=== PATIENT | female | born 1985 | race Caucasian/White ===

== ENCOUNTER → 2016-10-17 | Outpatient (REF) | payer OTHER ==
[~2016-10-17] MED LIST: ACET50TA PO; IBUP80TA PO; VITAPRTA PO
== END ==
LOC: M LAB REF 16:34
PROVIDERS: ATTEND Physician Assistant
DX: J02.9 Acute pharyngitis, unspecified (principal)

== ENCOUNTER → 2017-09-04 | Outpatient (REF) | payer OTHER ==
[2017-09-04 18:57] LABS: TOTAL 25(OH) VITAMIN D 15.2 NG/ML (30.0-100.0); TOTAL T3 92.9 NG/DL (60.0-181.0)
[2017-09-04 19:00] LABS: THYROID STIMULATING HORMONE 0.872 uIU/ML (0.358-3.740)
[2017-09-04 19:00] LABS: THYROXINE (T4) 11.3 UG/DL (4.5-12.0)
[2017-09-04 19:23] LABS: BASO # 0.1 10^3/uL (0.0-0.2); BASO % 0.4 % (0.0-1.0); EOS # 0.2 10^3/uL (0.0-0.50); EOS % 1.5 % (0.0-3.0); HEMATOCRIT 40.5 % (36.0-47.0); HEMOGLOBIN 13.5 g/dl (12.0-16.0); IMMATURE GRANULOCYTE % 0.9 % (0-3.0); LYMPH # 3.3 10^3/uL (1.5-4.5); LYMPH % 23.7 % (24.0-44.0); MEAN CORPUSCULAR HEMOGLOBIN 31.6 pg (27.0-33.0); MEAN CORPUSCULAR HGB CONC 33.3 g/dl (32.0-36.5); MEAN CORPUSCULAR VOLUME 94.8 fl (80.0-96.0); MONO # 0.9 10^3/uL (0.0-0.8); MONO % 6.2 % (0.0-5.0); NEUTROPHILS # 9.4 10^3/uL (1.8-7.7); NEUTROPHILS % 67.3 % (36.0-66.0); PLATELET COUNT, AUTOMATED 258 10^3/uL (150-450); RED BLOOD COUNT 4.27 10^6/uL (4.00-5.40); RED CELL DISTRIBUTION WIDTH 13.2 % (11.5-14.5)
[2017-09-12 10:26] LABS: SUMMARY SEE SEPARATE REPORT
== END ==
LOC: M LAB REF 16:38
DX: F43.12 Post-traumatic stress disorder, chronic (principal)
CPT/HCPCS: 84443

== ENCOUNTER → 2018-03-22 | Outpatient (CLI) | payer OTHER ==
[2018-03-22 13:45] LABS: BASO # 0.1 10^3/uL (0.0-0.2); BASO % 0.4 % (0.0-1.0); EOS # 0.2 10^3/uL (0.0-0.50); EOS % 1.7 % (0.0-3.0); HEMATOCRIT 40.7 % (36.0-47.0); HEMOGLOBIN 13.8 g/dl (12.0-15.5); IMMATURE GRANULOCYTE % 0.4 % (0-3.0); LYMPH # 2.8 10^3/uL (1.5-4.5); LYMPH % 22.1 % (24.0-44.0); MEAN CORPUSCULAR HEMOGLOBIN 32.2 pg (27.0-33.0); MEAN CORPUSCULAR HGB CONC 33.9 g/dl (32.0-36.5); MEAN CORPUSCULAR VOLUME 94.9 fl (80.0-96.0); MONO # 0.9 10^3/uL (0.0-0.8); MONO % 7.4 % (0.0-5.0); NEUTROPHILS # 8.5 10^3/uL (1.8-7.7); PLATELET COUNT, AUTOMATED 251 10^3/uL (150-450); RED BLOOD COUNT 4.29 10^6/uL (4.00-5.40); RED CELL DISTRIBUTION WIDTH 13.8 % (11.5-14.5); WHITE BLOOD COUNT 12.5 10^3/uL (4.0-10.0)
[2018-03-22 13:59] LABS: D-DIMER QUANT 257.7 ng/ml (<500)
[2018-03-22 14:12] LABS: ALBUMIN 4.3 GM/DL (3.2-5.2); ALKALINE PHOSPHATASE 59 U/L (45-117); ALT/SGPT 22 U/L (12-78); ANION GAP 8 MEQ/L (8-16); AST/SGOT 12 U/L (7-37); BILIRUBIN,TOTAL 0.9 MG/DL (0.2-1.0); BLOOD UREA NITROGEN 15 MG/DL (7-18); CALCIUM LEVEL 9.2 MG/DL (8.5-10.1); CARBON DIOXIDE LEVEL 27 MEQ/L (21-32); CHLORIDE LEVEL 107 MEQ/L (98-107); CK-MB VALUE MASS < 1.0 NG/ML (<3.6); CPK CREATINE PHOSPHOKINASE 49 U/L (26-192); FREE T4 0.85 NG/DL (0.76-1.46); GLOMERULAR FILTRATION RATE > 60.0 (>60); GLUCOSE, FASTING 76 MG/DL (70-100); MB/CK RELATIVE INDEX 2.04 (< OR =4); POTASSIUM SERUM 4.2 MEQ/L (3.5-5.1); SODIUM LEVEL 142 MEQ/L (136-145); THYROID STIMULATING HORMONE 0.606 uIU/ML (0.358-3.740); TOTAL PROTEIN 7.6 GM/DL (6.4-8.2); TROPONIN I < 0.02 NG/ML (< 0.10)
== END ==
LOC: M WUC 11:33
DX: R07.1 Chest pain on breathing (principal)

== ENCOUNTER → 2021-08-09 | Outpatient (CLI) | payer OTHER ==
[~2021-08-09] MED LIST changes: -ACET50TA PO; +MAPA500T2 PO
[2021-08-09 17:30] LABS: BASO # 0.1 10^3/uL (0.0-0.2); BASO % 0.3 % (0.0-1.0); EOS # 0.2 10^3/uL (0.0-0.5); EOS % 1.1 % (0.0-3.0); HEMATOCRIT 38.3 % (36.0-47.0); HEMOGLOBIN 12.8 g/dl (12.0-15.5); LYMPH # 2.8 10^3/uL (1.5-5.0); LYMPH % 17.9 % (24.0-44.0); MEAN CORPUSCULAR HEMOGLOBIN 33.1 pg (27.0-33.0); MEAN CORPUSCULAR HGB CONC 33.4 g/dl (32.0-36.5); MONO # 1.2 10^3/uL (0.0-0.8); MONO % 7.8 % (2.0-8.0); NEUTROPHILS # 11.5 10^3/uL (1.5-8.5); NEUTROPHILS % 72.3 % (36.0-66.0); PLATELET COUNT, AUTOMATED 321 10^3/uL (150-450); RED BLOOD COUNT 3.87 10^6/uL (4.00-5.40); WHITE BLOOD COUNT 15.9 10^3/uL (4.0-10.0)
[2021-08-09 18:42] LABS: HEPATITIS C VIRUS ABY INDEX 0.1 INDEX (<0.8); HIV 1&2 SCREEN CENTAUR NEGATIVE (NEGATIVE)
[2021-08-09 19:27] LABS: GC DNA AMPLIFICATION NEGATIVE (NEGATIVE)
== END ==
LOC: M PLALAB 15:13
PROVIDERS: ATTEND Advanced Practice Midwife
DX: Z34.91 Encounter for supervision of normal pregnancy, unspecified, first trimester (principal); Z3A.00 Weeks of gestation of pregnancy not specified

== ENCOUNTER 2021-08-25 18:14 | Emergency (ER) | payer OTHER ==
[~2021-08-25] VITALS: Ht 154.9 cm; Wt 65.9 kg
[2021-08-25 19:01] LABS: BASO % 0.2 % (0.0-1.0); EOS # 0.1 10^3/uL (0.0-0.5); EOS % 0.6 % (0.0-3.0); HEMATOCRIT 34.8 % (36.0-47.0); HEMOGLOBIN 12.1 g/dl (12.0-15.5); LYMPH # 3.3 10^3/uL (1.5-5.0); LYMPH % 19.3 % (24.0-44.0); MEAN CORPUSCULAR HEMOGLOBIN 32.6 pg (27.0-33.0); MEAN CORPUSCULAR HGB CONC 34.8 g/dl (32.0-36.5); MEAN CORPUSCULAR VOLUME 93.8 fl (80.0-96.0); MONO # 1.1 10^3/uL (0.0-0.8); MONO % 6.7 % (2.0-8.0); NEUTROPHILS # 12.2 10^3/uL (1.5-8.5); NEUTROPHILS % 72.7 % (36.0-66.0); PLATELET COUNT, AUTOMATED 341 10^3/uL (150-450); RED BLOOD COUNT 3.71 10^6/uL (4.00-5.40); WHITE BLOOD COUNT 16.8 10^3/uL (4.0-10.0)
[2021-08-25 19:40] LABS: HCG, SERUM QUANTITATIVE 62712 MIU/ML
[2021-08-25 20:17] LABS: ALBUMIN 4.1 GM/DL (3.2-5.2); ALT/SGPT 20 U/L (12-78); BILIRUBIN,TOTAL 0.5 MG/DL (0.2-1.0); BLOOD UREA NITROGEN 9 MG/DL (7-18); CALCIUM LEVEL 9.6 MG/DL (8.5-10.1); CARBON DIOXIDE LEVEL 23 MEQ/L (21-32); CHLORIDE LEVEL 106 MEQ/L (98-107); CREATININE FOR GFR 0.46 MG/DL (0.55-1.30); GLOMERULAR FILTRATION RATE > 60.0 (>60); GLUCOSE, FASTING 81 MG/DL (70-100); SODIUM LEVEL 136 MEQ/L (136-145); TOTAL PROTEIN 7.5 GM/DL (6.4-8.2)
[2021-08-25 22:21] VITALS: BP 121/76
[2021-08-25] MEDS ORDERED: CEPH500C PO (22:29)
[2021-08-25 23:02] LABS: GC DNA AMPLIFICATION NEGATIVE (NEGATIVE)
== END 2021-08-25 22:41 | disposition home or self-care (01) ==
LOC: M ED 18:14
DX: O20.8 Other hemorrhage in early pregnancy (principal); N93.9 Abnormal uterine and vaginal bleeding, unspecified; N39.0 Urinary tract infection, site not specified; Z88.0 Allergy status to penicillin; Z3A.10 10 weeks gestation of pregnancy

== ENCOUNTER → 2021-09-12 | Outpatient (REF) | payer OTHER ==
[~2021-09-12] MED LIST changes: +CEPH500C PO
== END ==
LOC: M PLALAB 14:15
PROVIDERS: ATTEND Advanced Practice Midwife
DX: Z53.9 Procedure and treatment not carried out, unspecified reason (principal)

== ENCOUNTER → 2021-09-12 | Outpatient (REF) | payer OTHER | LOC: M SFHCWAGY 16:47 | PROVIDERS: ATTEND Advanced Practice Midwife | DX: Z34.92 Encounter for supervision of normal pregnancy, unspecified, second trimester (principal) ==

== ENCOUNTER → 2021-09-13 | Outpatient (CLI) | payer OTHER | LOC: M PLALAB 12:42 | PROVIDERS: ATTEND Advanced Practice Midwife | DX: Z34.92 Encounter for supervision of normal pregnancy, unspecified, second trimester (principal) ==

== ENCOUNTER 2021-10-18 05:07 | Emergency (ER) | payer OTHER ==
[~2021-10-18] VITALS: Ht 154.9 cm; Wt 63.6 kg
[2021-10-18 05:07] VITALS: BP 125/58
== END 2021-10-18 08:03 | disposition home or self-care (01) ==
LOC: M ED 05:07
DX: M67.431 Ganglion, right wrist (principal); M25.531 Pain in right wrist; Y92.009 Unspecified place in unspecified non-institutional (private) residence as the place of occurrence of the external cause; Y93.9 Activity, unspecified; Y99.9 Unspecified external cause status; Z3A.18 18 weeks gestation of pregnancy; Z88.0 Allergy status to penicillin

== ENCOUNTER → 2021-10-31 | Outpatient (CLI) | payer OTHER | LOC: M WHC 12:03 | PROVIDERS: ATTEND Advanced Practice Midwife | DX: Z34.82 Encounter for supervision of other normal pregnancy, second trimester (principal); Z3A.17 17 weeks gestation of pregnancy ==

== ENCOUNTER → 2021-12-08 | Outpatient (CLI) | payer OTHER | LOC: M WHC 09:58 | PROVIDERS: ATTEND Obstetrics & Gynecology | DX: Z34.92 Encounter for supervision of normal pregnancy, unspecified, second trimester (principal); Z3A.25 25 weeks gestation of pregnancy ==

== ENCOUNTER → 2021-12-21 | Outpatient (CLI) | payer OTHER | LOC: M WHC 11:56 | PROVIDERS: ATTEND Specialist | DX: Z34.02 Encounter for supervision of normal first pregnancy, second trimester (principal) ==

== ENCOUNTER → 2021-12-27 | Outpatient (REF) | payer OTHER ==
[2021-12-27 16:19] LABS: HEMATOCRIT 29.6 % (36.0-47.0); HEMOGLOBIN 10.1 g/dl (12.0-15.5); MEAN CORPUSCULAR HEMOGLOBIN 32.6 pg (27.0-33.0); MEAN CORPUSCULAR HGB CONC 34.1 g/dl (32.0-36.5); MEAN CORPUSCULAR VOLUME 95.5 fl (80.0-96.0); PLATELET COUNT, AUTOMATED 299 10^3/uL (150-450); WHITE BLOOD COUNT 19.1 10^3/uL (4.0-10.0)
== END ==
LOC: M SFHCADAM 15:51
PROVIDERS: ATTEND Obstetrics & Gynecology
DX: Z34.92 Encounter for supervision of normal pregnancy, unspecified, second trimester (principal)

== ENCOUNTER → 2022-02-16 | Outpatient (CLI) | payer OTHER | LOC: M WHC 10:40 | PROVIDERS: ATTEND Obstetrics & Gynecology | DX: O99.810 Abnormal glucose complicating pregnancy (principal); Z3A.35 35 weeks gestation of pregnancy ==

== ENCOUNTER → 2022-02-21 | Outpatient (REF) | payer OTHER | LOC: M SFHCWAGY 17:11 | PROVIDERS: ATTEND Specialist | DX: Z36.85 Encounter for antenatal screening for Streptococcus B (principal) ==

== ENCOUNTER 2022-03-20 10:20 | Inpatient (IN) | payer OTHER ==
[2022-03-20] VITALS (56 sets, daily range): BP systolic 81–134; BP diastolic 47–82
[~2022-03-20] VITALS: Ht 154.9 cm; Wt 65.9 kg
[2022-03-20] MEDS ORDERED: TUMS500C PO (10:39)
[2022-03-20] MEDS ORDERED: ECOT81TA5 PO (10:39)
[2022-03-20] MEDS ORDERED: HOME MED LIST COMPLETE! XX SCH (11:10)
[2022-03-20 11:27] LABS: HEMATOCRIT 37.2 % (36.0-47.0); HEMOGLOBIN 12.7 g/dl (12.0-15.5); MEAN CORPUSCULAR HEMOGLOBIN 32.4 pg (27.0-33.0); MEAN CORPUSCULAR HGB CONC 34.1 g/dl (32.0-36.5); MEAN CORPUSCULAR VOLUME 94.9 fl (80.0-96.0); PLATELET COUNT, AUTOMATED 342 10^3/uL (150-450); RED BLOOD COUNT 3.92 10^6/uL (4.00-5.40); WHITE BLOOD COUNT 20.1 10^3/uL (4.0-10.0)
[2022-03-20] MEDS ORDERED: LIDOCAINE 1% MDV 20ML VIAL INFIL PRN (14:20)
[2022-03-20] MEDS ORDERED: LR 1,000 ML IV SCH ×3 (14:20→22:40)
[2022-03-20] MEDS ORDERED: CARBOPROST TROMETHAMINE 250 MCG/ML AMP IM PRN (14:20)
[2022-03-20] MEDS ORDERED: METHYLERGONOVINE MALEATE 0.2 MG/ML VIAL (J2210) IM PRN (14:20)
[2022-03-20] MEDS ORDERED: LACTATED RINGER'S 1000 ML IV STA (14:20)
[2022-03-20] MEDS ORDERED: TRANEXAMIC ACID INJection 1,000 MG in NS 100 ML IV PRN (14:20)
[2022-03-20] MEDS ORDERED: OXYTOCIN DRIP 30 UNITS in IV 1 EA IV PRN ×4 (14:20)
[2022-03-20] MEDS ORDERED: OXYTOCIN INJ 10 UNITS/ML VIAL (J2590) IM PRN (14:20)
[2022-03-20] MEDS ORDERED: OXYTOCIN DRIP 30 UNITS in IV 1 EA IV SCH ×3 (14:20→22:25)
[2022-03-20] MEDS ORDERED: NALOXONE INJ 0.4MG/1ML VIAL (J2310 PER 1MG) IV PRN ×3 (15:05→22:40)
[2022-03-20] MEDS ORDERED: LR 500 ML IV PRN (15:05)
[2022-03-20] MEDS ORDERED: diphenhydrAMINE 50MG/ML VIAL (J1200) IV PRN ×2 (15:05→22:40)
[2022-03-20] MEDS ORDERED: FENTANYL/ROPIVACAINE/NACL BAG 100 ML EPIDURAL SCH (15:05)
[2022-03-20] MEDS ORDERED: EPIDURAL/PCA KEYS XX PRN (15:05)
[2022-03-20] MEDS ORDERED: ONDANSETRON 4MG 2ML VIAL IV PRN ×3 (15:05→22:40)
[2022-03-20] MEDS: ePHEDrine SULFATE 25 MG/5 ML(5MG/ML) SYRINGE IVP PRN ×3 (15:59→16:18)
[2022-03-20] MEDS ORDERED: ePHEDrine INJ 50 MG/ML VIAL IV STA (16:41)
[2022-03-20] MEDS: ePHEDrine SULFATE 25 MG/5 ML(5MG/ML) SYRINGE IV PRN ×2 (16:49→18:48)
[2022-03-20] MEDS ORDERED: ceFAZolin SOD 2 GM in IV 1 EA IV ONE (20:05)
[2022-03-20] MEDS ORDERED: AZITHROMYCIN INJ 500 MG, VIAL MATE ADAPTER 1 EACH in NS 250 ML IV ONE (20:05)
[2022-03-20] MEDS ORDERED: BICITRA 30ML SOLN UDC PO ONE (20:05)
[2022-03-20] MEDS ORDERED: BICITRA 30ML SOLN UDC As Ordered ONE (20:07)
[2022-03-20] MEDS ORDERED: ceFAZolin 2 GM/D5W 50 ML IV BAG (J0690 PER 500MG) As Ordered ONE (20:07)
[2022-03-20] MEDS ORDERED: OXYTOCIN INJ 10 UNITS/ML VIAL (J2590) As Ordered ONE (20:14)
[2022-03-20] MEDS ORDERED: LIDOCAINE 2% W/EPINEPHRINE 20ML VIAL **PRES FREE As Ordered ONE (20:27)
[2022-03-20] MEDS ORDERED: ONDANSETRON 4MG 2ML VIAL As Ordered ONE (21:07)
[2022-03-20] MEDS ORDERED: propofoL 200 MG/20 ML VIAL As Ordered ONE ×2 (21:48→21:54)
[2022-03-20] MEDS ORDERED: BUPIVACAINE/EPIN 0.25% 30 ML VIAL As Ordered ONE (21:49)
[2022-03-20] MEDS ORDERED: KETOROLAC 60MG 2ML VIAL As Ordered ONE (21:58)
[2022-03-20] MEDS ORDERED: MORPHINE PRES-FREE INJ 10 MG/10 ML VIAL As Ordered ONE (21:58)
[2022-03-20] MEDS ORDERED: OXYTOCIN 30 UNITS IN 0.9% NaCl 500ML IV BAG (J2590) As Ordered ONE (21:59)
[2022-03-20] MEDS ORDERED: SIMETHICONE 80MG CHEW TAB PO PRN (22:25)
[2022-03-20] MEDS ORDERED: RHOGAM 300 MCG (1500 IU) INJ (J2790) IM SCH (22:25)
[2022-03-20] MEDS ORDERED: DOCUSATE SODIUM 100MG CAPSULE PO PRN (22:25)
[2022-03-20] MEDS ORDERED: METOCLOPRAMIDE INJ 10MG/2ML VIAL (J2765 PER 1) IV PRN ×2 (22:25→22:40)
[2022-03-20] MEDS ORDERED: oxyCODONE 5MG TAB PO PRN (22:25)
[2022-03-20] MEDS ORDERED: **NOTE PATIENT COMMENT** MISC XX SCH (22:40)
[2022-03-20] MEDS ORDERED: PERCOCET 5MG/325MG TAB PO PRN (22:40)
[2022-03-20] MEDS ORDERED: fentaNYL 100 MCG/2 ML INJECTION IV PRN (22:40)
[2022-03-20] MEDS: SLF 3 ML SYR IV SCH (22:40)
[2022-03-21] VITALS (11 sets, daily range): BP systolic 86–97; BP diastolic 48–56
[2022-03-21] MEDS: KETOROLAC 30 MG/ML 1ML VIAL IV SCH ×3 (04:02→15:56)
[2022-03-21] MEDS: SLF 3 ML SYR IV SCH ×2 (06:40→14:40)
[2022-03-21] MEDS: PRENATAL VITAMINS CHEWABLE TABLET PO SCH (08:35)
[2022-03-21 08:56] LABS: HEMATOCRIT 28.8 % (36.0-47.0); MEAN CORPUSCULAR HEMOGLOBIN 32.3 pg (27.0-33.0); MEAN CORPUSCULAR HGB CONC 33.3 g/dl (32.0-36.5); PLATELET COUNT, AUTOMATED 284 10^3/uL (150-450); RED BLOOD COUNT 2.97 10^6/uL (4.00-5.40)
[2022-03-21 09:06] LABS: HEMOGLOBIN 9.6 g/dl (12.0-15.5)
[2022-03-21 09:07] LABS: WHITE BLOOD COUNT 30.6 10^3/uL (4.0-10.0)
[2022-03-21] MEDS: ACETAMINOPHEN 500 MG TAB PO SCH ×2 (10:30→21:56)
[2022-03-21] MEDS: LR 1,000 ML IV SCH ×2 (10:30→18:25)
[2022-03-22] MEDS ORDERED: IBUPROFEN 600MG TAB PO SCH
[2022-03-22 02:00] VITALS: BP 112/71
[2022-03-22] MEDS: oxyCODONE 5MG TAB PO PRN ×2 (02:13→08:28)
[2022-03-22 06:00] VITALS: BP 94/53
[2022-03-22] MEDS: PRENATAL VITAMINS CHEWABLE TABLET PO SCH (08:29)
[2022-03-22] MEDS ORDERED: MEASLES,MUMPS,RUBELLA VACCINE INJ (MMR-II) (90707) SC.IMMUN ONE (09:00)
[2022-03-22 10:00] VITALS: BP 91/50
[2022-03-22] MEDS ORDERED: ACET-683 PO (11:33)
[2022-03-22] MEDS ORDERED: IBUP-1022 PO (11:33)
[2022-03-22] MEDS ORDERED: COLA100C5 PO (11:33)
[2022-03-22] MEDS ORDERED: OXYC-517 PO (11:33)
== END 2022-03-22 13:50 | disposition home or self-care (01) | DRG 540 ==
LOC: M LDO 10:20 → M LDI 14:20 → M OBS 03-21 00:06
PROVIDERS: ADMIT Advanced Practice Midwife; ATTEND Advanced Practice Midwife
PROC: 0UB70ZZ Excision of Bilateral Fallopian Tubes, Open Approach (ICD-10-PCS; 2022-03-20)
PROC: 10D00Z1 Extraction of Products of Conception, Low, Open Approach (ICD-10-PCS; principal; 2022-03-20 20:32)
DX: O24.419 Gestational diabetes mellitus in pregnancy, unspecified control (principal); Z37.0 Single live birth; Z3A.40 40 weeks gestation of pregnancy; Z88.0 Allergy status to penicillin; O32.3XX0 Maternal care for face, brow and chin presentation, not applicable or unspecified; O09.523 Supervision of elderly multigravida, third trimester; Z30.2 Encounter for sterilization

== ENCOUNTER → 2022-04-24 | Outpatient (REF) | payer OTHER ==
[~2022-04-24] MED LIST changes: +ACET-683 PO; +COLA100C5 PO; +ECOT81TA5 PO; +IBUP-1022 PO; +OXYC-517 PO; +TUMS500C PO
== END ==
LOC: M LAB REF 21:50
PROVIDERS: ATTEND Physician Assistant Medical
DX: R05.9 Cough, unspecified (principal); R50.9 Fever, unspecified

== ENCOUNTER 2024-03-27 09:33 | Observation (INO) | payer OTHER ==
[~2024-03-27] VITALS: Ht 154.9 cm; Wt 56.5 kg
[2024-03-27] MEDS ORDERED: EXCETAB32 PO (09:45)
[2024-03-27 10:08] LABS: BASO # 0.1 10^3/uL (0.0-0.2); BASO % 0.4 % (0.0-1.0); HEMATOCRIT 45.6 % (36.0-47.0); HEMOGLOBIN 16.2 g/dl (12.0-15.5); LYMPH # 1.4 10^3/uL (1.5-5.0); LYMPH % 8.6 % (24.0-44.0); MEAN CORPUSCULAR HGB CONC 35.5 g/dl (32.0-36.5); MEAN CORPUSCULAR VOLUME 95.6 fl (80.0-96.0); MONO # 0.8 10^3/uL (0.0-0.8); MONO % 5.1 % (2.0-8.0); NEUTROPHILS # 13.8 10^3/uL (1.5-8.5); NEUTROPHILS % 85.5 % (36.0-66.0); PLATELET COUNT, AUTOMATED 317 10^3/uL (150-450); RED BLOOD COUNT 4.77 10^6/uL (4.00-5.40); WHITE BLOOD COUNT 16.2 10^3/uL (4.0-10.0)
[2024-03-27 10:32] LABS: LIPASE 39 U/L (12-53)
[2024-03-27 10:37] LABS: ALBUMIN 4.3 G/DL (3.2-5.2); ALKALINE PHOSPHATASE 92 U/L (46-116); ALT/SGPT 107 U/L (7.0-40); AST/SGOT 89 U/L (<34); BILIRUBIN,DIRECT 0.6 MG/DL (<0.4); BILIRUBIN,TOTAL 1.5 MG/DL (0.3-1.2); BLOOD UREA NITROGEN 5 MG/DL (9-23); CALCIUM LEVEL 10.2 MG/DL (8.5-10.1); CARBON DIOXIDE LEVEL 29 MMOL/L (20-31); CHLORIDE LEVEL 95 MMOL/L (98-107); CREATININE FOR GFR 0.87 MG/DL (0.55-1.30); GLOMERULAR FILTRATION RATE > 60.0 (>60); GLUCOSE, FASTING 131 MG/DL (60-100); POTASSIUM SERUM 2.4 MMOL/L (3.5-5.1); SODIUM LEVEL 138 MMOL/L (136-145); TOTAL PROTEIN 8.4 G/DL (5.7-8.2)
[2024-03-27] MEDS ORDERED: ISOVUE-370 76% 100ML VIAL As Ordered ONE (11:24)
[2024-03-27] MEDS: KCL 10MEQ/100ML SWI (KRUN) 10 MEQ in IV 1 EA IV ONE (11:35)
[2024-03-27] MEDS: POTASSIUM CHLORIDE 10MEQ SR TABLET PO ONE (11:36)
[2024-03-27] MEDS: LORazepam 2 MG/ML 1ML VIAL IV STA (11:43)
[2024-03-27 12:01] LABS: MAGNESIUM LEVEL 1.6 MG/DL (1.8-2.4)
[2024-03-27 12:06] LABS: HCG, SERUM QUALITATIVE NEGATIVE (NEGATIVE)
[2024-03-27] MEDS ORDERED: MAG SULF 1GM/100ML (MAG RUN) 1 GM in IV 1 EA IV ONE (12:25)
[2024-03-27] MEDS: MAG SULF 1GM/100ML (MAG RUN) 1 GM in IV 1 EA IV SCH (12:50)
[2024-03-27] MEDS ORDERED: PNV1TABL16 PO (13:42)
[2024-03-27] MEDS ORDERED: HOME MED LIST COMPLETE! XX SCH (13:45)
[2024-03-27 14:32] LABS: AMPHETAMINES LEVEL URINE NEGATIVE (NEGATIVE); BARBITURATES URINE NEGATIVE (NEGATIVE); BENZODIAZEPINES URINE NEGATIVE (NEGATIVE); COCAINE METABOLITE URINE NEGATIVE (NEGATIVE); METHADONE URINE NEGATIVE (NEGATIVE); OPIATES URINE NEGATIVE (NEGATIVE); PHENCYCLIDINE URINE NEGATIVE (NEGATIVE)
[2024-03-27 14:33] LABS: CANNABINOIDS URINE POSITIVE (NEGATIVE)
[2024-03-27] MEDS: NS 1,000 ML IV SCH (14:50)
[2024-03-27 15:12] LABS: C REACTIVE PROTEIN QUANTITATIV < 0.40 MG/DL (<1.0)
[2024-03-27] MEDS: KCL 10MEQ/100ML SWI (KRUN) 10 MEQ in IV 1 EA IV SCH (15:25)
[2024-03-27 16:25] VITALS: BP 111/68; TEMP 98.1; O2SAT 98
[2024-03-27] MEDS: POTASSIUM CHLORIDE 10MEQ SR TABLET PO SCH (16:44)
[2024-03-27 16:45] LABS: BLOOD UREA NITROGEN 5 MG/DL (9-23); CALCIUM LEVEL 8.7 MG/DL (8.5-10.1); CARBON DIOXIDE LEVEL 34 MMOL/L (20-31); CHLORIDE LEVEL 101 MMOL/L (98-107); CREATININE FOR GFR 0.71 MG/DL (0.55-1.30); GLOMERULAR FILTRATION RATE > 60.0 (>60); GLUCOSE, FASTING 110 MG/DL (60-100); POTASSIUM SERUM 2.9 MMOL/L (3.5-5.1); SODIUM LEVEL 139 MMOL/L (136-145)
[2024-03-27] MEDS: PANTOPRAZOLE 40MG VIAL IV SCH (16:45)
[2024-03-27] MEDS: METOCLOPRAMIDE 5 MG TAB PO SCH (16:45)
[2024-03-27] MEDS: cefTRIAXone SOD 1 GM in D5W MINI-BAG PLUS 50 ML IV SCH (18:01)
[2024-03-27 20:50] VITALS: BP 109/68; TEMP 98.2; O2SAT 98
[2024-03-28 03:47] VITALS: BP 105/72; TEMP 97.9; O2SAT 98
[2024-03-28 05:33] LABS: MEAN CORPUSCULAR HEMOGLOBIN 34.4 pg (27.0-33.0); MEAN CORPUSCULAR HGB CONC 34.8 g/dl (32.0-36.5); MEAN CORPUSCULAR VOLUME 98.9 fl (80.0-96.0); PLATELET COUNT, AUTOMATED 224 10^3/uL (150-450); RED BLOOD COUNT 3.66 10^6/uL (4.00-5.40); WHITE BLOOD COUNT 10.3 10^3/uL (4.0-10.0)
[2024-03-28 05:51] LABS: HEMATOCRIT 36.2 % (36.0-47.0); HEMOGLOBIN 12.6 g/dl (12.0-15.5)
[2024-03-28 06:13] LABS: PROCALCITONIN 3.87 ng/ml
[2024-03-28 06:14] LABS: ALBUMIN 2.9 G/DL (3.2-5.2); ALKALINE PHOSPHATASE 62 U/L (46-116); ALT/SGPT 56 U/L (7.0-40); AST/SGOT 37 U/L (<34); BILIRUBIN,TOTAL 1.5 MG/DL (0.3-1.2); BLOOD UREA NITROGEN < 5 MG/DL (9-23); CALCIUM LEVEL 7.9 MG/DL (8.5-10.1); CARBON DIOXIDE LEVEL 30 MMOL/L (20-31); CHLORIDE LEVEL 106 MMOL/L (98-107); CREATININE FOR GFR 0.65 MG/DL (0.55-1.30); GLOMERULAR FILTRATION RATE > 60.0 (>60); GLUCOSE, FASTING 88 MG/DL (60-100); MAGNESIUM LEVEL 2.1 MG/DL (1.8-2.4); POTASSIUM SERUM 3.1 MMOL/L (3.5-5.1); SODIUM LEVEL 140 MMOL/L (136-145); TOTAL PROTEIN 5.8 G/DL (5.7-8.2)
[2024-03-28] MEDS: KCL 10MEQ/100ML SWI (KRUN) 10 MEQ in IV 1 EA IV SCH (09:45)
[2024-03-28 12:00] VITALS: BP 106/73; TEMP 97.7; O2SAT 99
[2024-03-28] MEDS ORDERED: CEFD1CAP9 PO (13:50)
[2024-03-28] MEDS: POTASSIUM CHLORIDE 10MEQ SR TABLET PO ONE (14:13)
== END 2024-03-28 14:46 | disposition home or self-care (01) ==
LOC: M ED 09:33 → EDBD 09:33 → M ED INP 09:34 → M MSPAV 16:23
PROVIDERS: ADMIT Hospitalist; ATTEND Hospitalist
DX: R55 Syncope and collapse (principal); E87.6 Hypokalemia; E83.42 Hypomagnesemia; G43.909 Migraine, unspecified, not intractable, without status migrainosus; F41.1 Generalized anxiety disorder; F17.200 Nicotine dependence, unspecified, uncomplicated; F12.10 Cannabis abuse, uncomplicated; Z88.0 Allergy status to penicillin; Z79.899 Other long term (current) drug therapy
CPT/HCPCS: 36415; 71045; 74176; 76705; 80048; 80053; 80076; 80307; 81001; 83605; 83690; 83735; 84145; 84703; 85025; 85027; 86140; 87040; 87088; 87186; 93005; 93041; 96361; 96365; 96375; 96376; 99285; J0696; J2060; J2470; J3475

== ENCOUNTER 2024-10-03 03:23 | Inpatient (IN) | payer OTHER ==
[2024-10-03] VITALS (7 sets, daily range): BP systolic 107–125; BP diastolic 67–82; TEMP 96.8–98.2; O2SAT 96–98
[~2024-10-03] VITALS: Ht 154.9 cm; Wt 57.1 kg
[~2024-10-03 03:23] MED LIST changes: +CEFD1CAP9 PO; +EXCETAB32 PO; +PNV1TABL16 PO
[2024-10-03] MEDS: NS (Normal Saline) 0.9% 1,000 ML IV ONE (03:55)
[2024-10-03] MEDS: ONDANSETRON 4MG 2ML VIAL IV ONE (04:03)
[2024-10-03 04:11] LABS: BASO # 0.1 10^3/uL (0.0-0.2); BASO % 0.6 % (0.0-1.0); EOS % 0.1 % (0.0-3.0); HEMATOCRIT 34.5 % (36.0-47.0); HEMOGLOBIN 12.2 g/dl (12.0-15.5); LYMPH # 1.6 10^3/uL (1.5-5.0); LYMPH % 19.8 % (24.0-44.0); MEAN CORPUSCULAR HEMOGLOBIN 34.8 pg (27.0-33.0); MEAN CORPUSCULAR HGB CONC 35.4 g/dl (32.0-36.5); MEAN CORPUSCULAR VOLUME 98.3 fl (80.0-96.0); MONO % 12.6 % (2.0-8.0); NEUTROPHILS # 5.2 10^3/uL (1.5-8.5); NEUTROPHILS % 66.3 % (36.0-66.0); PLATELET COUNT, AUTOMATED 127 10^3/uL (150-450); RED BLOOD COUNT 3.51 10^6/uL (4.00-5.40); WHITE BLOOD COUNT 7.8 10^3/uL (4.0-10.0)
[2024-10-03 04:48] LABS: CK-MB VALUE MASS < 1.0 NG/ML (<3.6)
[2024-10-03 04:49] LABS: CPK CREATINE PHOSPHOKINASE 58 U/L (34-145); MB/CK RELATIVE INDEX 1.72 (< OR =4)
[2024-10-03 04:56] LABS: ALKALINE PHOSPHATASE 116 U/L (35-104); ALT/SGPT 245 U/L (7.0-40); AST/SGOT 478 U/L (<34); BILIRUBIN,TOTAL 1.8 MG/DL (0.3-1.2); BLOOD UREA NITROGEN < 5 MG/DL (9-23); CALCIUM LEVEL 8.2 MG/DL (8.5-10.1); CARBON DIOXIDE LEVEL 32 MMOL/L (20-31); CHLORIDE LEVEL 94 MMOL/L (98-107); CREATININE FOR GFR 0.67 MG/DL (0.55-1.30); GLOMERULAR FILTRATION RATE > 60.0 (>60); GLUCOSE, FASTING 107 MG/DL (60-100); MAGNESIUM LEVEL 1.4 MG/DL (1.8-2.4); POTASSIUM SERUM 2.8 MMOL/L (3.5-5.1); SODIUM LEVEL 138 MMOL/L (136-145); TOTAL PROTEIN 6.4 G/DL (5.7-8.2)
[2024-10-03] MEDS: POTASSIUM CHLORIDE 10% LIQ 20MEQ/15ML UDC PO ONE (05:15)
[2024-10-03] MEDS: MAG SULF 1GM/100ML (MAG RUN) 1 GM in IV 1 EA IV ONE (05:18)
[2024-10-03] MEDS: KCL 10MEQ/100ML SWI (KRUN) 10 MEQ in IV 1 EA IV ONE (05:24)
[2024-10-03] MEDS ORDERED: LORazepam 2 MG TAB PO PRN (06:00)
[2024-10-03] MEDS: LORazepam 2 MG/ML 1ML VIAL IV STA (06:16)
[2024-10-03] MEDS: LORazepam 1 MG TAB PO STA (06:17)
[2024-10-03] MEDS ORDERED: HOME MED LIST COMPLETE! XX SCH (06:25)
[2024-10-03] MEDS: THIAMINE 100 MG TAB PO SCH ×2 (06:53→21:18)
[2024-10-03] MEDS ORDERED: ONDANSETRON 4MG 2ML VIAL IV PRN (08:40)
[2024-10-03] MEDS ORDERED: PROCHLORPERAZINE 5MG TAB PO PRN (08:40)
[2024-10-03] MEDS ORDERED: MULTIVITAMINS/MINERALS THERAP 1 TAB PO SCH (09:00)
[2024-10-03] MEDS ORDERED: FOLIC ACID 1MG TAB PO SCH (09:00)
[2024-10-03] MEDS: FOLIC ACID 1MG TAB PO SCH (09:13)
[2024-10-03] MEDS: MULTIVITAMINS/MINERALS THERAP 1 TAB PO SCH (09:13)
[2024-10-03] MEDS: ENOXAPARIN 40MG/0.4ML SYRINGE (J1650 PER 10MG) SC SCH (09:13)
[2024-10-03] MEDS: NS (Normal Saline) 0.9% 1,000 ML IV SCH (09:13)
[2024-10-03 09:57] LABS: INR 0.99; PROTHROMBIN TIME 13.4 SECONDS (12.5-14.5)
[2024-10-03 10:01] LABS: POTASSIUM SERUM 3.6 MMOL/L (3.5-5.1)
[2024-10-03] MEDS: NICOTINE 14 MG/24 HR TRANSDERMAL TD SCH (10:24)
[2024-10-03] MEDS: LORazepam 2 MG TAB PO PRN (10:25)
[2024-10-03] MEDS: MAGNESIUM OXIDE 400MG TAB (MAG-OX) PO SCH (12:26)
[2024-10-03 13:20] LABS: HEPATITIS B SURFACE ANTIGEN NEGATIVE (NEGATIVE)
[2024-10-03 13:40] LABS: HEPATITIS C VIRUS ABY INDEX 0.03 INDEX (<0.8)
[2024-10-03 13:41] LABS: HEPATITIS B CORE ANTIBODY IGM NEGATIVE (NEGATIVE)
[2024-10-03] MEDS: ACETAMINOPHEN 325 MG TAB PO PRN (14:37)
[2024-10-03 15:17] LABS: ALBUMIN 2.7 G/DL (3.2-5.2); ALKALINE PHOSPHATASE 106 U/L (35-104); ALT/SGPT 230 U/L (7.0-40); AST/SGOT 485 U/L (<34); BLOOD UREA NITROGEN < 5 MG/DL (9-23); CALCIUM LEVEL 7.4 MG/DL (8.5-10.1); CARBON DIOXIDE LEVEL 32 MMOL/L (20-31); CHLORIDE LEVEL 103 MMOL/L (98-107); CREATININE FOR GFR 0.66 MG/DL (0.55-1.30); GLOMERULAR FILTRATION RATE > 60.0 (>60); GLUCOSE, FASTING 88 MG/DL (60-100); PHOSPHORUS LEVEL 3.9 MG/DL (2.5-4.9); POTASSIUM SERUM 3.5 MMOL/L (3.5-5.1); SODIUM LEVEL 141 MMOL/L (136-145); TOTAL PROTEIN 6.1 G/DL (5.7-8.2)
[2024-10-04] VITALS (7 sets, daily range): BP systolic 112–141; BP diastolic 79–92; TEMP 97.2–98.1; O2SAT 94–98
[2024-10-04 02:27] LABS: KETONE, URINE AUTO RFX NEGATIVE (NEGATIVE); LEUKOCYTE ESTERASE UR AUTO RFX 3+ (NEGATIVE); MUCUS, URINE RFX SMALL (NEGATIVE); NITRITE, URINE AUTO RFX NEGATIVE (NEGATIVE); RBC, URINE AUTO RFX 2 /HPF (0-3); SQUAM EPITHELIAL CELL UR AURFX 2 /HPF (0-6); WBC, URINE AUTO RFX 31 /HPF (0-3)
[2024-10-04 06:47] LABS: HEMATOCRIT 33.4 % (36.0-47.0); HEMOGLOBIN 11.1 g/dl (12.0-15.5); MEAN CORPUSCULAR HEMOGLOBIN 35.2 pg (27.0-33.0); MEAN CORPUSCULAR HGB CONC 33.2 g/dl (32.0-36.5); PLATELET COUNT, AUTOMATED 120 10^3/uL (150-450); RED BLOOD COUNT 3.15 10^6/uL (4.00-5.40); WHITE BLOOD COUNT 5.6 10^3/uL (4.0-10.0)
[2024-10-04 07:10] LABS: ALBUMIN 2.6 G/DL (3.2-5.2); ALKALINE PHOSPHATASE 91 U/L (35-104); ALT/SGPT 183 U/L (7.0-40); AST/SGOT 301 U/L (<34); BILIRUBIN,TOTAL 1.5 MG/DL (0.3-1.2); BLOOD UREA NITROGEN < 5 MG/DL (9-23); CARBON DIOXIDE LEVEL 30 MMOL/L (20-31); CHLORIDE LEVEL 109 MMOL/L (98-107); CREATININE FOR GFR 0.71 MG/DL (0.55-1.30); GLOMERULAR FILTRATION RATE > 60.0 (>60); GLUCOSE, FASTING 71 MG/DL (60-100); MAGNESIUM LEVEL 2.1 MG/DL (1.8-2.4); POTASSIUM SERUM 3.9 MMOL/L (3.5-5.1); SODIUM LEVEL 145 MMOL/L (136-145); TOTAL PROTEIN 5.6 G/DL (5.7-8.2)
[2024-10-04] MEDS: NITROFURANTOIN (MACROBID) 100 MG CAP PO SCH (20:51)
[2024-10-05] VITALS: BP 119/84; TEMP 97.9; O2SAT 93
[2024-10-05 05:10] VITALS: BP 121/89; TEMP 97.3; O2SAT 95
[2024-10-05 06:44] LABS: HEMATOCRIT 31.9 % (36.0-47.0); HEMOGLOBIN 10.9 g/dl (12.0-15.5); MEAN CORPUSCULAR HGB CONC 34.2 g/dl (32.0-36.5); MEAN CORPUSCULAR VOLUME 105.3 fl (80.0-96.0); PLATELET COUNT, AUTOMATED 125 10^3/uL (150-450); RED BLOOD COUNT 3.03 10^6/uL (4.00-5.40); WHITE BLOOD COUNT 6.4 10^3/uL (4.0-10.0)
[2024-10-05 07:00] VITALS: BP 121/89
[2024-10-05 07:22] LABS: ALBUMIN 2.6 G/DL (3.2-5.2); ALKALINE PHOSPHATASE 117 U/L (35-104); ALT/SGPT 148 U/L (7.0-40); AST/SGOT 206 U/L (<34); BLOOD UREA NITROGEN < 5 MG/DL (9-23); CALCIUM LEVEL 7.1 MG/DL (8.5-10.1); CARBON DIOXIDE LEVEL 25 MMOL/L (20-31); CHLORIDE LEVEL 108 MMOL/L (98-107); CREATININE FOR GFR 0.59 MG/DL (0.55-1.30); GLOMERULAR FILTRATION RATE > 60.0 (>60); GLUCOSE, FASTING 82 MG/DL (60-100); POTASSIUM SERUM 3.2 MMOL/L (3.5-5.1); SODIUM LEVEL 143 MMOL/L (136-145); TOTAL PROTEIN 5.7 G/DL (5.7-8.2)
[2024-10-05] MEDS: POTASSIUM CHLORIDE 10MEQ SR TABLET PO ONE ×2 (08:55→10:12)
[2024-10-05] MEDS: MAG SULF 1GM/100ML (MAG RUN) 1 GM in IV 1 EA IV SCH (08:57)
[2024-10-05 12:00] VITALS: TEMP 97.5; O2SAT 96
[2024-10-05 14:00] VITALS: BP 118/82
[2024-10-05 20:00] VITALS: BP 129/90; TEMP 97.9; O2SAT 97
[2024-10-06 03:57] VITALS: BP 124/88; TEMP 97.2; O2SAT 98
[2024-10-06 05:57] LABS: HEMATOCRIT 34.9 % (36.0-47.0); HEMOGLOBIN 11.6 g/dl (12.0-15.5); MEAN CORPUSCULAR HGB CONC 33.2 g/dl (32.0-36.5); MEAN CORPUSCULAR VOLUME 105.4 fl (80.0-96.0); PLATELET COUNT, AUTOMATED 151 10^3/uL (150-450); RED BLOOD COUNT 3.31 10^6/uL (4.00-5.40); WHITE BLOOD COUNT 7.4 10^3/uL (4.0-10.0)
[2024-10-06 06:24] LABS: ALBUMIN 2.8 G/DL (3.2-5.2); ALKALINE PHOSPHATASE 113 U/L (35-104); ALT/SGPT 123 U/L (7.0-40); AST/SGOT 130 U/L (<34); BILIRUBIN,TOTAL 0.7 MG/DL (0.3-1.2); BLOOD UREA NITROGEN 6 MG/DL (9-23); CALCIUM LEVEL 7.7 MG/DL (8.5-10.1); CARBON DIOXIDE LEVEL 21 MMOL/L (20-31); CHLORIDE LEVEL 109 MMOL/L (98-107); CREATININE FOR GFR 0.54 MG/DL (0.55-1.30); GLOMERULAR FILTRATION RATE > 60.0 (>60); GLUCOSE, FASTING 96 MG/DL (60-100); POTASSIUM SERUM 4.2 MMOL/L (3.5-5.1); SODIUM LEVEL 140 MMOL/L (136-145); TOTAL PROTEIN 6.2 G/DL (5.7-8.2)
[2024-10-06] MEDS: CEFDINIR 300 MG CAP (OMNICEF) PO SCH (08:51)
[2024-10-06] MEDS ORDERED: CEFD300CAP PO (09:55)
[2024-10-06] MEDS ORDERED: FLUC150T9 PO (09:55)
== END 2024-10-06 11:03 | disposition home or self-care (01) | DRG 249 ==
LOC: M ED 03:23 → M ED INP 08:33 → M MSPAV 10:10
PROVIDERS: ADMIT Internal Medicine; ATTEND Internal Medicine
DX: A08.11 Acute gastroenteropathy due to Norwalk agent (principal); E83.42 Hypomagnesemia; N39.0 Urinary tract infection, site not specified; B96.20 Unspecified Escherichia coli [E. coli] as the cause of diseases classified elsewhere; F17.200 Nicotine dependence, unspecified, uncomplicated; E87.6 Hypokalemia; R55 Syncope and collapse; R94.31 Abnormal electrocardiogram [ECG] [EKG]; G43.909 Migraine, unspecified, not intractable, without status migrainosus; F41.9 Anxiety disorder, unspecified; F32.A Depression, unspecified; F10.239 Alcohol dependence with withdrawal, unspecified; R25.1 Tremor, unspecified; F12.90 Cannabis use, unspecified, uncomplicated; Z88.0 Allergy status to penicillin

== ENCOUNTER → 2024-10-16 | Outpatient (REF) | payer OTHER, MEDICAID ==
[~2024-10-16] MED LIST changes: +CEFD300CAP PO; +FLUC150T9 PO
[2024-10-16 18:45] LABS: TOTAL 25(OH) VITAMIN D 8.9 NG/ML (20.0-100.0)
[2024-10-16 18:46] LABS: FOLATE 10.5 NG/ML (>5.4); THYROID STIMULATING HORMONE 1.134 uIU/ML (0.55-4.78)
[2024-10-16 18:48] LABS: FREE T4 0.95 NG/DL (0.89-1.76); VITAMIN B12 LEVEL 493 PG/ML (211-911)
[2024-10-16 19:10] LABS: HIV 1&2 SCREEN NEGATIVE (NEGATIVE)
[2024-10-16 19:13] LABS: ALBUMIN 3.7 G/DL (3.2-5.2); ALKALINE PHOSPHATASE 68 U/L (35-104); ALT/SGPT 31 U/L (7.0-40); AST/SGOT 18 U/L (<34); BILIRUBIN,TOTAL 0.3 MG/DL (0.3-1.2); BLOOD UREA NITROGEN 12 MG/DL (9-23); CALCIUM LEVEL 10.8 MG/DL (8.5-10.1); CARBON DIOXIDE LEVEL 29 MMOL/L (20-31); CHLORIDE LEVEL 99 MMOL/L (98-107); CHOLESTEROL LEVEL 193 MG/DL (<200); CHOLESTEROL RISK RATIO 2.85 (<5); CREATININE FOR GFR 0.56 MG/DL (0.55-1.30); GLOMERULAR FILTRATION RATE > 90.0 (>60); GLUCOSE, FASTING 78 MG/DL (60-100); HDL CHOLESTEROL 67.7 MG/DL (>40); LDL CHOLESTEROL 94.7 MG/DL (<100); MAGNESIUM LEVEL 1.9 MG/DL (1.8-2.4); NON-HDL-C 125.3 MG/DL; POTASSIUM SERUM 4.9 MMOL/L (3.5-5.1); SODIUM LEVEL 139 MMOL/L (136-145); TOTAL PROTEIN 7.6 G/DL (5.7-8.2); TRIGLYCERIDES LEVEL 153 MG/DL (<150)
[2024-10-16 21:24] LABS: HEMOGLOBIN A1c 5.2 % (4.0-6.0)
== END ==
LOC: M LAB REF 17:34
PROVIDERS: ATTEND Physician Assistant
DX: F10.21 Alcohol dependence, in remission (principal); Z11.9 Encounter for screening for infectious and parasitic diseases, unspecified; E55.9 Vitamin D deficiency, unspecified; R74.01 Elevation of levels of liver transaminase levels

== ENCOUNTER 2025-01-27 16:00 | Outpatient (RCR) | payer OTHER | END 2025-01-29 | LOC: M OUTALCOH 16:00 | PROVIDERS: ATTEND Psychiatry & Neurology Psychiatry | DX: F10.20 Alcohol dependence, uncomplicated (principal); F12.10 Cannabis abuse, uncomplicated; F17.200 Nicotine dependence, unspecified, uncomplicated ==

== ENCOUNTER 2025-02-27 11:00 | Outpatient (RCR) | payer OTHER ==
[~2025-02-27 11:00] MED LIST changes: -IBUP-1022 PO; +IBUP600T42 PO
== END 2025-03-01 ==
LOC: M OUTALCOH 11:00
PROVIDERS: ATTEND Psychiatry & Neurology Psychiatry
DX: F10.20 Alcohol dependence, uncomplicated (principal); F12.10 Cannabis abuse, uncomplicated; F17.200 Nicotine dependence, unspecified, uncomplicated

== ENCOUNTER 2025-03-29 08:33 | Emergency (ER) | payer OTHER ==
[~2025-03-29] VITALS: Ht 154.9 cm; Wt 54.5 kg
[2025-03-29 09:00] VITALS: TEMP 98.9
[2025-03-29 09:24] LABS: BASO # 0.0 10^3/uL (0.0-0.2); BASO % 0.2 % (0.0-1.0); EOS # 0.0 10^3/uL (0.0-0.5); EOS % 0.0 % (0.0-3.0); LYMPH # 1.5 10^3/uL (1.5-5.0); LYMPH % 5.8 % (24.0-44.0); MONO # 1.6 10^3/uL (0.0-0.8); MONO % 6.5 % (2.0-8.0); NEUTROPHILS # 22.1 10^3/uL (1.5-8.5); NEUTROPHILS % 86.9 % (36.0-66.0); PLATELET COUNT, AUTOMATED 324 10^3/uL (150-450)
[2025-03-29] MEDS: NS (Normal Saline) 0.9% 1,000 ML IV ONE ×2 (09:28→10:57)
[2025-03-29 09:48] LABS: HCG, SERUM QUALITATIVE NEGATIVE (NEGATIVE)
[2025-03-29 09:51] LABS: ALT/SGPT 30 U/L (7.0-40); AST/SGOT 33 U/L (<34); CALCIUM LEVEL 9.6 MG/DL (8.5-10.1); CARBON DIOXIDE LEVEL 34 MMOL/L (20-31); CHLORIDE LEVEL 78 MMOL/L (98-107); CREATININE FOR GFR 1.10 MG/DL (0.55-1.30); GLOMERULAR FILTRATION RATE 66.0 (>60); MAGNESIUM LEVEL 1.2 MG/DL (1.8-2.4); POTASSIUM SERUM 2.8 MMOL/L (3.5-5.1); SODIUM LEVEL 128 MMOL/L (136-145)
[2025-03-29] MEDS ORDERED: ISOVUE-370 76% 100 ML VIAL As Ordered ONE (10:15)
[2025-03-29] MEDS: POTASSIUM CHLORIDE 10MEQ SR TABLET PO ONE ×2 (10:41→15:52)
[2025-03-29] MEDS: MAG SULF 1GM/100ML (MAG RUN) 1 GM in IV 1 EA IV ONE ×2 (10:42→13:17)
[2025-03-29] MEDS: LORazepam 1 MG TAB PO STA (13:25)
[2025-03-29 14:50] LABS: PLATELET COUNT, AUTOMATED 252 10^3/uL (150-450)
[2025-03-29 14:50] LABS: ETHYL ALCOHOL (ETHANOL) < 0.003 % (0.000-0.010)
[2025-03-29 15:11] LABS: MAGNESIUM LEVEL 2.7 MG/DL (1.8-2.4); POTASSIUM SERUM 3.3 MMOL/L (3.5-5.1)
[2025-03-29] MEDS ORDERED: CARA1TAB6 PO (15:42)
[2025-03-29] MEDS ORDERED: ONDA-282 PO (15:42)
[2025-03-29 15:46] VITALS: BP 110/70; O2SAT 96
[2025-03-29] MEDS: SUCRALFATE SUSP 1GM/10ML UD PO ONE (15:52)
== END 2025-03-29 15:55 | disposition home or self-care (01) ==
LOC: EDBD 08:33 → M ED 08:33
DX: F10.129 Alcohol abuse with intoxication, unspecified (principal); R11.2 Nausea with vomiting, unspecified; E83.42 Hypomagnesemia; E87.6 Hypokalemia; R00.0 Tachycardia, unspecified; R16.0 Hepatomegaly, not elsewhere classified; K76.0 Fatty (change of) liver, not elsewhere classified; G43.909 Migraine, unspecified, not intractable, without status migrainosus; F41.9 Anxiety disorder, unspecified; Z90.89 Acquired absence of other organs; Z88.0 Allergy status to penicillin; Z88.1 Allergy status to other antibiotic agents; Z79.2 Long term (current) use of antibiotics; Z79.83 Long term (current) use of bisphosphonates; Z79.899 Other long term (current) drug therapy
CPT/HCPCS: 74177; 80048; 80076; 82077; 83690; 83735; 84132; 84703; 85025; 85027; 93005; 93041; 96361; 96365; 96366; 96375; 99285; J2060; J2765; J3475; Q9967

== ENCOUNTER 2025-04-23 13:49 | Outpatient (RCR) | payer OTHER ==
[~2025-04-23 13:49] MED LIST changes: +CARA1TAB6 PO; +ONDA-282 PO
[2025-05-01] MEDS ORDERED: ONDA-83 PO (10:14)
[2025-05-02] MEDS ORDERED: PANT40TA29 PO (15:53)
[2025-05-02] MEDS ORDERED: FOLI1TAB11 PO (15:53)
[2025-05-02] MEDS ORDERED: THERTAB19 PO (15:53)
[2025-05-02] MEDS ORDERED: THIA100TA PO (15:53)
== END 2025-05-01 ==
LOC: M OUTALCOH 13:49
PROVIDERS: ATTEND Psychiatry & Neurology Psychiatry
DX: F10.20 Alcohol dependence, uncomplicated (principal); F12.10 Cannabis abuse, uncomplicated; F17.200 Nicotine dependence, unspecified, uncomplicated

== ENCOUNTER 2025-05-01 05:25 | Inpatient (IN) | payer OTHER ==
[~2025-05-01] VITALS: Ht 154.9 cm; Wt 54.5 kg
[2025-05-01 06:02] LABS: PLATELET COUNT, AUTOMATED 296 10^3/uL (150-450)
[2025-05-01 06:17] LABS: CK-MB VALUE MASS 1.4 NG/ML (<3.6)
[2025-05-01 06:19] LABS: CALCIUM LEVEL 10.2 MG/DL (8.5-10.1); CARBON DIOXIDE LEVEL 28.0 MMOL/L (20-31); CHLORIDE LEVEL 72.0 MMOL/L (98-107); CPK CREATINE PHOSPHOKINASE 262.0 U/L (34-145); CREATININE FOR GFR 1.2 MG/DL (0.55-1.30); GLOMERULAR FILTRATION RATE 59.1 (>60); MB/CK RELATIVE INDEX 0.53 (< OR =4); POTASSIUM SERUM 2.7 MMOL/L (3.5-5.1); SODIUM LEVEL 132.0 MMOL/L (136-145)
[2025-05-01 06:26] LABS: EOSINOPHILS 4 % (0-3); LYMPHOCYTES 7 % (16-44); MONOCYTES 7 % (0-5); NEUTROPHILS 82 % (28-66)
[2025-05-01 06:27] LABS: PLATELET ESTIMATE NORMAL (NORMAL)
[2025-05-01 06:39] LABS: MAGNESIUM LEVEL 1.6 MG/DL (1.8-2.4)
[2025-05-01] MEDS: POTASSIUM CHLORIDE 10% LIQ 20MEQ/15ML UDC PO ONE (06:40)
[2025-05-01] MEDS: NS (Normal Saline) 0.9% 1,000 ML IV ONE ×3 (06:41→09:14)
[2025-05-01] MEDS: KCL 10MEQ/100ML SWI (KRUN) 10 MEQ in IV 1 EA IV ONE (06:41)
[2025-05-01] MEDS: ALPRAZolam 0.5 MG TAB PO ONE (06:44)
[2025-05-01] MEDS ORDERED: ISOVUE-370 76% 100 ML VIAL As Ordered ONE (06:58)
[2025-05-01 07:13] LABS: CK-MB VALUE MASS 1.2 NG/ML (<3.6)
[2025-05-01 07:37] LABS: CPK CREATINE PHOSPHOKINASE 262.0 U/L (34-145); MB/CK RELATIVE INDEX 0.45 (< OR =4)
[2025-05-01] MEDS: MAG SULF 1GM/100ML (MAG RUN) 1 GM in IV 1 EA IV ONE ×2 (07:46→09:14)
[2025-05-01] MEDS: LIDOCAINE 2% 5 ML JELLY UROJET TOP ONE (07:57)
[2025-05-01 08:22] LABS: ALT/SGPT 24 U/L (7.0-40); AST/SGOT 30 U/L (<34)
[2025-05-01 08:38] LABS: KETONE, URINE AUTO RFX TRACE mg/dL (NEGATIVE); LEUKOCYTE ESTERASE UR AUTO RFX NEGATIVE (NEGATIVE); MUCUS, URINE RFX SMALL (NEGATIVE); NITRITE, URINE AUTO RFX NEGATIVE (NEGATIVE); RBC, URINE AUTO RFX 12 /HPF (0-3); SQUAM EPITHELIAL CELL UR AURFX 9 /HPF (0-6); WBC, URINE AUTO RFX 3 /HPF (0-3)
[2025-05-01 08:42] LABS: ETHYL ALCOHOL (ETHANOL) 0.008 % (0.000-0.010)
[2025-05-01 08:43] LABS: AMPHETAMINES LEVEL URINE NEGATIVE (NEGATIVE)
[2025-05-01 08:44] LABS: BARBITURATES URINE NEGATIVE (NEGATIVE); BENZODIAZEPINES URINE NEGATIVE (NEGATIVE); COCAINE METABOLITE URINE NEGATIVE (NEGATIVE); METHADONE URINE NEGATIVE (NEGATIVE); OPIATES URINE NEGATIVE (NEGATIVE); PHENCYCLIDINE URINE NEGATIVE (NEGATIVE)
[2025-05-01 08:44] LABS: SALICYLATE LEVEL 3.0 MG/DL (<30)
[2025-05-01 08:46] LABS: CANNABINOIDS URINE POSITIVE (NEGATIVE)
[2025-05-01] MEDS: CEFEPIME HCL 2 GM in DEXTROSE 5% (D5W) ADV/MINI-BAG 50 ML IV ONE (08:53)
[2025-05-01] MEDS: FOLIC ACID 1 MG TAB PO SCH (09:00)
[2025-05-01] MEDS: MULTIVITAMINS/MINERALS THERAP 1 TAB PO SCH (09:00)
[2025-05-01] MEDS: THIAMINE 100 MG TAB PO SCH (09:00)
[2025-05-01] MEDS: PANTOPRAZOLE 40MG VIAL IV SCH (09:14)
[2025-05-01] MEDS ORDERED: MED REC IN PROGRESS XX SCH (09:25)
[2025-05-01] MEDS ORDERED: ONDA-83 PO (10:14)
[2025-05-01] MEDS ORDERED: HOME MED LIST COMPLETE! XX SCH (10:15)
[2025-05-01 12:11] LABS: CALCIUM LEVEL 7.9 MG/DL (8.5-10.1); CARBON DIOXIDE LEVEL 33 MMOL/L (20-31); CHLORIDE LEVEL 92 MMOL/L (98-107); CREATININE FOR GFR 0.81 MG/DL (0.55-1.30); GLOMERULAR FILTRATION RATE > 90.0 (>60); POTASSIUM SERUM 2.8 MMOL/L (3.5-5.1); SODIUM LEVEL 137 MMOL/L (136-145)
[2025-05-01] MEDS: ONDANSETRON 4MG/2ML VIAL IV PRN (13:34)
[2025-05-01] MEDS: KCL 10MEQ/100ML SWI (KRUN) 10 MEQ in IV 1 EA IV SCH (13:35)
[2025-05-01] MEDS: OXAZEPAM 15MG CAP PO SCH (13:35)
[2025-05-01] MEDS: ENOXAPARIN 40 MG/0.4 ML SYRINGE (J1650 PER 10MG) SC SCH (13:41)
[2025-05-01 16:01] VITALS: BP_SYST 105; BP_SYST 107; BP_DIAS 69; TEMP 98.4; O2SAT 95
[2025-05-01] MEDS ORDERED: NS 0.9% IV SCH (18:00)
[2025-05-01] MEDS ORDERED: POTASSIUM CHLORIDE IV SCH (18:00)
[2025-05-01] MEDS: KCL 40MEQ in NS 1000ML 1,000 ML IV SCH (18:52)
[2025-05-01 21:01] VITALS: BP 114/77; TEMP 98.8; O2SAT 96
[2025-05-02 00:40] VITALS: BP 113/73
[2025-05-02 04:30] VITALS: BP 113/85; TEMP 98.8; O2SAT 100
[2025-05-02 06:31] LABS: BASO # 0.0 10^3/uL (0.0-0.2); BASO % 0.5 % (0.0-1.0); EOS # 0.0 10^3/uL (0.0-0.5); EOS % 0.2 % (0.0-3.0); LYMPH # 1.8 10^3/uL (1.5-5.0); LYMPH % 21.5 % (24.0-44.0); MONO # 0.6 10^3/uL (0.0-0.8); MONO % 7.5 % (2.0-8.0); NEUTROPHILS # 5.7 10^3/uL (1.5-8.5); NEUTROPHILS % 69.9 % (36.0-66.0); PLATELET COUNT, AUTOMATED 176 10^3/uL (150-450)
[2025-05-02 06:59] LABS: CALCIUM LEVEL 8.1 MG/DL (8.5-10.1); CARBON DIOXIDE LEVEL 29 MMOL/L (20-31); CHLORIDE LEVEL 101 MMOL/L (98-107); CREATININE FOR GFR 0.64 MG/DL (0.55-1.30); GLOMERULAR FILTRATION RATE > 90.0 (>60); POTASSIUM SERUM 3.6 MMOL/L (3.5-5.1); SODIUM LEVEL 139 MMOL/L (136-145)
[2025-05-02 08:01] VITALS: BP 118/88
[2025-05-02 12:00] VITALS: BP 122/89; TEMP 98.6; O2SAT 99
[2025-05-02] MEDS ORDERED: FOLI1TAB11 PO (15:53)
[2025-05-02] MEDS ORDERED: PANT40TA29 PO (15:53)
[2025-05-02] MEDS ORDERED: THERTAB19 PO (15:53)
[2025-05-02] MEDS ORDERED: THIA100TA PO (15:53)
== END 2025-05-02 18:38 | disposition home or self-care (01) | DRG 243 ==
LOC: M ED 05:25 → M ED INP 10:31 → M MSPAV 16:04
PROVIDERS: ADMIT Internal Medicine Nephrology; ATTEND Internal Medicine
DX: K20.80 Other esophagitis without bleeding (principal); F10.10 Alcohol abuse, uncomplicated; G43.909 Migraine, unspecified, not intractable, without status migrainosus; Z88.0 Allergy status to penicillin; Z79.899 Other long term (current) drug therapy; F32.A Depression, unspecified; E86.0 Dehydration; E87.6 Hypokalemia; E83.42 Hypomagnesemia; E87.1 Hypo-osmolality and hyponatremia; E87.20 Acidosis, unspecified; D72.829 Elevated white blood cell count, unspecified

== ENCOUNTER 2025-05-25 10:59 | Outpatient (RCR) | payer OTHER ==
[~2025-05-25 10:59] MED LIST changes: +FOLI1TAB11 PO; +ONDA-83 PO; +PANT40TA29 PO; +THERTAB19 PO; +THIA100TA PO
== END 2025-05-31 ==
LOC: M OUTALCOH 10:59
PROVIDERS: ATTEND Psychiatry & Neurology Psychiatry
DX: F10.20 Alcohol dependence, uncomplicated (principal); F12.10 Cannabis abuse, uncomplicated; F17.200 Nicotine dependence, unspecified, uncomplicated